=== PATIENT | male | born 1985 | race Caucasian/White ===

== ENCOUNTER 2017-02-07 12:34 | Emergency (ER) | payer SELFPAY | END 2017-02-07 13:29 | disposition left against medical advice (07) | LOC: ED 13:23 | DX: M54.5 Low back pain (principal); Z53.21 Procedure and treatment not carried out due to patient leaving prior to being seen by health care provider ==

== ENCOUNTER 2017-07-27 07:11 | Emergency (ER) | payer MEDICAID ==
[~2017-07-27] VITALS: Ht 177.8 cm; Wt 89.3 kg
[2017-07-27 09:14] VITALS: BP 121/76
== END 2017-07-27 09:17 | disposition home or self-care (01) ==
LOC: ED 07:38
DX: S40.011A Contusion of right shoulder, initial encounter (principal); S50.01XA Contusion of right elbow, initial encounter; F17.210 Nicotine dependence, cigarettes, uncomplicated; W01.0XXA Fall on same level from slipping, tripping and stumbling without subsequent striking against object, initial encounter; Y93.55 Activity, bike riding; Y92.89 Other specified places as the place of occurrence of the external cause; Y99.8 Other external cause status
CPT/HCPCS: 99284

== ENCOUNTER 2018-10-22 11:47 | Emergency (ER) | payer MEDICAID ==
[~2018-10-22] VITALS: Ht 177.8 cm; Wt 105.4 kg
[2018-10-22 11:52] VITALS: BP 128/76
[2018-10-22] MEDS ORDERED: KETOROLAC 30 MG/1 ML IM ONE (12:30)
[2018-10-22] MEDS ORDERED: KETOROLAC 30 MG/1 ML ONE (12:48)
== END 2018-10-22 13:06 | disposition home or self-care (01) ==
LOC: ED 12:50
DX: M54.41 Lumbago with sciatica, right side (principal)
CPT/HCPCS: 99283

== ENCOUNTER 2021-02-21 15:47 | Emergency (ER) | payer MEDICAID ==
[~2021-02-21] VITALS: Ht 172.7 cm; Wt 118.8 kg
--- NOTE | 2021-02-21 16:30 | NUR ---
POC reviewed with pt
[2021-02-21] MEDS ORDERED: METHOCARBAMOL 750 MG TABLET ONE (16:59)
[2021-02-21] MEDS ORDERED: KETOROLAC 30 MG/1 ML ONE (16:59)
[2021-02-21] MEDS ORDERED: KETOROLAC 30 MG/1 ML IM ONE (17:00)
[2021-02-21] MEDS ORDERED: METHOCARBAMOL 750 MG TABLET PO ONE (17:00)
[2021-02-21 17:04] VITALS: BP 129/69
--- NOTE | 2021-02-21 17:16 | NUR ---
dc instructions reviewed
== END 2021-02-21 17:26 | disposition home or self-care (01) ==
LOC: ED 17:20
DX: M54.5 Low back pain (principal)
CPT/HCPCS: 96372; 99283; J1885; J7512